=== PATIENT | male | born 1955 | race Caucasian/White ===

== ENCOUNTER 2017-01-15 06:03 | Inpatient (IN) | payer BC ==
[2017-01-11 17:14] VITALS: Ht 177.8 cm; Wt 106.5 kg
[2017-01-15] VITALS (18 sets, daily range): BP systolic 90–153; BP diastolic 50–77; PULSE 61–96; RESP 13–19
[~2017-01-15] VITALS: Ht 177.8 cm; Wt 106.5 kg
[2017-01-15] MEDS ORDERED: MELA1TAB25 PO (06:11)
[2017-01-15] MEDS ORDERED: SIMV40TA7 PO (06:11)
[2017-01-15] MEDS ORDERED: HYDR-902 PO (06:11)
[2017-01-15] MEDS ORDERED: LISI-313 PO (06:11)
[2017-01-15] MEDS ORDERED: ASPI81TA3 PO (06:11)
[2017-01-15] MEDS ORDERED: CELE200C PO (06:11)
[2017-01-15] MEDS ORDERED: ZOLP10TA PO (06:11)
[2017-01-15] MEDS ORDERED: METOPROLOL PO (06:11)
[2017-01-15] MEDS ORDERED: RANI150T5 PO (06:11)
[2017-01-15] MEDS ORDERED: CALCIUM CARBONATE PO (06:11)
[2017-01-15] MEDS ORDERED: ZOLP5TAB PO (06:11)
[2017-01-15] MEDS ORDERED: VIT D3 PO (06:11)
[2017-01-15] MEDS ORDERED: SURGIFOAM POWDER 1 GM KIT ONE (06:39)
[2017-01-15] MEDS ORDERED: CA CHLORIDE 10% 10 ML SYRINGE ONE (06:40)
[2017-01-15] MEDS ORDERED: THROMBIN 5000 UNIT VIAL ONE (06:40)
[2017-01-15] MEDS ORDERED: BUPIVACAINE 0.25%/EPI (SDV) 30 ML INJ ONE (06:41)
[2017-01-15] MEDS ORDERED: POLYMYXIN/BACITRACIN 1L IRRIG ONE (06:45)
[2017-01-15] MEDS ORDERED: NA BICARBONATE 8.4% 50 ML SYG ONE (07:00)
[2017-01-15] MEDS: D5W-0.45 NACL + KCL 20 MEQ 1,000 ML IV SCH ×2 (07:04→17:38)
[2017-01-15] MEDS ORDERED: MIDAZOLAM 1 MG/ML 2 ML INJ ONE (07:09)
[2017-01-15] MEDS ORDERED: CEFAZOLIN 1 GM INJ ONE (07:12)
[2017-01-15] MEDS ORDERED: HEPARIN 1000 UNITS/ML 10 ML INJ ONE (07:15)
[2017-01-15] MEDS ORDERED: ONDANSETRON 4 MG INJ IV PRN ×2 (07:30→09:00)
[2017-01-15] MEDS: CEFAZOLIN 1 GM/50 ML (PMX) 50 ML IVPB SCH ×3 (07:30→23:43)
[2017-01-15] MEDS ORDERED: DIPHENHYDRAMINE 25 MG CAP PO PRN (07:30)
[2017-01-15] MEDS ORDERED: BISACODYL 10 MG SUPP PR PRN (07:30)
[2017-01-15] MEDS ORDERED: NALOXONE (0.4 MG/ML) INJ IV PRN (07:30)
[2017-01-15] MEDS ORDERED: ACETAMINOPHEN 325 MG TAB PO PRN (07:30)
[2017-01-15] MEDS ORDERED: HYDROmorphONE 1 MG/ML SYG IV PRN (07:30)
[2017-01-15] MEDS ORDERED: AL HYDROX/MG HYDROX/SIMETH 30 ML CUP PO PRN (07:30)
[2017-01-15] MEDS ORDERED: DIPHENHYDRAMINE 50 MG INJ IV PRN ×2 (07:30→09:00)
--- NOTE | 2017-01-15 07:37 | HPN ---
Date/Time of Note Date/Time of Note DATE: 01/15/17 TIME: 07:36 Interval H&P Admission Note Pt. seen H&P reviewed: No system changes THOMAS LOPEZ PA-C January 15, 2017 07:37
[2017-01-15] MEDS ORDERED: BUPIVACAINE 0.25%/EPI (SDV) 30 ML INJ INJ ONE (07:46)
[2017-01-15] MEDS ORDERED: THROMBIN 5000 UNIT VIAL TOP ONE ×2 (07:46→08:42)
--- NOTE | 2017-01-15 08:18 | RADRPT ---
PROCEDURE: XR Lumbar Spine. CLINICAL INDICATION: L3-L5 DECOMPRESSION RM 4 O.R. TECHNIQUE: A single lateral view of the lumbar spine was obtained. obtained. COMPARISON: No prior studies are available for comparison. FINDINGS: There is normal osseous mineralization. There is normal alignment. No acute fracture. No subluxation of vertebral bodies. There is degenerative disk disease with vacuum disk phenomenon at L3-4 and L4-5. Posterior localizer pins are noted at L3-4 and L5-S1. IMPRESSION: Posterior localizer pins at L3-4 and L4-5. RPTAT: EE Physician Erica Date Time Electronically viewed and signed by Physician Erica on 01/15/2017 08:17 RA/
--- NOTE | 2017-01-15 08:19 | RADRPT ---
PROCEDURE: XR Lumbar Spine. CLINICAL INDICATION: L3-L5 DECOMPRESSION RM 4 O.R. TECHNIQUE: A single lateral view of the lumbar spine was obtained. COMPARISON: No prior studies are available for comparison. FINDINGS: There is normal osseous mineralization. There is normal alignment. No acute fracture. No subluxation of vertebral bodies. There is degenerative disk disease with vacuum disk phenomenon and L3-4 and L4-5. A posterior localizing pain is noted at L4-5. Post surgical material is noted within the subcutaneous soft tissues posterior to L3-4 and L4-5. IMPRESSION: Postprocedural changes within the subcutaneous soft tissues posterior to L3-4 and L4-5. RPTAT: EE Physician Erica Date Time Electronically viewed and signed by Physician Erica on 01/15/2017 08:19 /
[2017-01-15] MEDS ORDERED: HYDROmorphONE (0.2 MG/ML) 10ML SYG IV PRN ×2 (09:00)
[2017-01-15] MEDS ORDERED: LABETALOL HCL 20MG INJ IV PRN (09:00)
[2017-01-15] MEDS ORDERED: hydrALAzine 20 MG INJ IV PRN (09:00)
[2017-01-15] MEDS: DOCUSATE SODIUM 100 MG CAP PO SCH ×2 (09:00→20:23)
[2017-01-15] MEDS ORDERED: FENTAnyl 50 MCG/ML VIAL IV PRN (09:00)
[2017-01-15] MEDS ORDERED: MEPERIDINE 25 MG INJ IV PRN (09:00)
[2017-01-15] MEDS ORDERED: BUPIVACAINE 0.25% (MPF) 30 ML INJ ONE (09:41)
[2017-01-15] MEDS ORDERED: FENTAnyl 50 MCG/ML VIAL ONE (09:42)
[2017-01-15] MEDS ORDERED: hydrALAzine 20 MG INJ ONE (09:51)
[2017-01-15] MEDS ORDERED: PROPOFOL 20 ML ONE (10:20)
[2017-01-15] MEDS ORDERED: LIDOCAINE 2% (SDV) 5 ML INJ ONE (10:20)
[2017-01-15] MEDS ORDERED: NEOSTIGMINE 3 MG/3 ML SYRINGE ONE (10:21)
[2017-01-15] MEDS ORDERED: ROCURONIUM 50 MG INJ ONE (10:21)
[2017-01-15] MEDS ORDERED: ONDANSETRON 4 MG INJ ONE (10:21)
[2017-01-15] MEDS ORDERED: GLYCOPYRROLATE 1 MG INJ ONE (10:21)
--- NOTE | 2017-01-15 10:47 | OPR ---
DATE OF OPERATION: 01/15/2017 PREOPERATIVE DIAGNOSES: 1. L3-L4, L4-L5 stenosis with radiculopathy. 2. Central disk extrusion at L3-4. POSTOPERATIVE DIAGNOSES: 1. L3-L4, L4-L5 stenosis with radiculopathy. 2. Central disk extrusion at L3-4. PROCEDURE: 1. Central decompressive laminectomy at L3-L4 and L4-L5 with decompression of L3, L4, L5 nerve root s for stenosis. 2. L3-4 microdiskectomy to further alleviate stenosis. 3. Lateral localizing film x2. 4. Intraoperative neuromonitoring (2.5 hours). 5. Use of a intraoperative microscope. 6. Epidural injection via catheter. PRIMARY SURGEON: Osorio Pinto MD CARDIAC CATHETERIZATION TECHNICIAN: Jennifer Neville PA-C NEED FOR SUPERVISOR PHOTOENGRAVING: During this spinal surgical procedure, my sociology research assistant was used to retrac t and protect the spinal nerves and dural sac. My sociology research assistant also employed the suction catheters to evacuate blood from the surgical field to improve visualization of the neural structures. The sandoval tant was medically necessary to facilitate the completion of the surgery in a safe and expeditious [place]. State of [place] regulations, as well as hospital bylaws, preclude the use of non-license d health care personnel, such as operating room technicians, to perform these functions. FINDINGS: Intraoperative neuromonitoring signals at start of the case revealed right L4 and bilater al L5 nerve signals down 40%. The patient had stenosis at L3-L4 and L4-L5. In addition, had a larg e extruded fragment at L3-4. ESTIMATED BLOOD LOSS: 300 mL with 150 mL returned back to the patient via Cell Saver. DRAINS: One. SPECIMENS: 1. L3-4 spinous process. 2. L3-4 disk. COMPLICATIONS OF PROCEDURES: None. ANESTHESIOLOGIST: Calderon Llanes MD TYPE OF ANESTHESIA: General. INDICATIONS FOR PROCEDURE: This is a 61-year-old gentleman with lumbosacral radiculopathy in the se tting of stenosis. In addition, he had a disk extrusion adding to the stenosis. He failed nonopera tive measures, therefore, I recommended proceeding with the above-mentioned surgery. Preoperatively , we discussed the risks, benefits, and alternatives. He understood and wished to proceed. DESCRIPTION OF PROCEDURE IN DETAIL: The patient was identified in the preoperative holding area, gi max Ancef antibiotic, taken to the operating room, where he was placed under general anesthesia by Archana Llanes. Neuromonitoring leads were placed, sequential compressive devices were applied. Wellington c atheter was introduced. Neuromonitoring was utilized during was utilized during the procedure for 2 .5 hours to include SSEP, MEP, and EMG. This was performed by [employer]. Start time was 7:4 5 a.m., closure time was 10:15 a.m. The patient was placed in the operative table in prone position over a Jose Daniel frame. All bony promi nences were well padded. The back was then prepped and draped in usual sterile fashion. Spinal nee dles were placed lateral localizing films obtained to confirm the correct levels. Once this was con firmed, I injected the skin, subcutaneous tissue, and paraspinal musculature with 0.25% Marcaine and epinephrine. Incision was then made over the L3-L4 and L4-L5 level. Incision was taken down to do rsal fascia, which was incised with Bovie cautery. I then subperiosteally dissected the L3 and L4 l zan bilaterally. Kerrison was placed under what was felt to be the L4 lamina and repeat lateral f ilms obtained to confirm the correct levels. Once this was confirmed, microscope was brought in and a central decompressive laminectomy was performed at the L4 and L4-5 levels. I decompressed the la teral recess and decompressed the L3, L4 and L5 nerve roots. This decompression was done in order t o alleviate the stenosis. I turned my attention to the right L3-4 level. I had my sociology research assistant retract the neural elements media lly and identified extruded fragment. I made an incision just through the posterior longitudinal li gament and removed the extruded fragment. This fragment was causing more stenosis and was done in o rder to further alleviate the stenosis. This added approximately 40 minutes to the standard decompr ession for stenosis. I then entered the disk space through the tear in the annulus and removed free fragments. Once this was done, all nerve signals returned to normal. Wound was irrigated. Hemost asis was achieved with bipolar cautery and Surgifoam. Wound was irrigated again. Bone wax was plac ed on the bony edges. Epidural catheter was passed through which I injected 100 mcg of fentanyl wit h 2 mL of Marcaine 0.25% preservative-free, and the catheter was pulled. Anesthesiologist karen manuelito pheral blood, which was spun using the AcesoBee device. I took the platelet-poor plasma and mixed t his with thrombin and injected this over the dura for hemostatic purposes. The retractors were removed and I closed deep fascia with #1 StrataFix suture after placing a subfas cial drain. I then closed subcutaneous tissue with 2-0 Vicryl stitch. A 4-0 Monocryl closure was t hen performed. Dermabond and sterile dressings were then applied. The patient was then awakened fr om anesthesia and taken to recovery room in stable condition. Lap, sponge, and instrument counts we re correct x2. There were no apparent complications during the procedure. The patient will be admi tted to the orthopedic kwon for routine postoperative care to include pain control, neurovascular ch ecks, antibiotics, and physical therapy. Dictated By: OSORIO JOHNSON/JOSEFINA Conf#: [id number] DID#: [id number]
[2017-01-15] MEDS: HYDROmorphONE 0.2 MG/ML PCA IV SCH ×2 (10:57→18:29)
--- NOTE | 2017-01-15 13:49 | CONS ---
Date/Time of Note Date/Time of Note DATE: 01/15/17 TIME: 13:38 Assessment/Plan Assessment/Plan Problems: (1) Status post lumbar laminectomy Status: Acute Comment: Immediately postop. He is actually already standing with physical therapy. Continue with appropriate postoperative care with careful observation and intervention. At this moment no postoperative complications (2) Status post lumbar microdiscectomy Status: Acute Comment: As above. Continue careful physical therapy. (3) S/P AVR (aortic valve replacement) Status: Chronic Comment: This was performed in 2011 when he successfully stable with a bioprosthetic valve (4) Hepatitis C antibody positive in blood Status: Chronic Comment: We will treat him with blood blood and body fluid precautions. (5) GERD (gastroesophageal reflux disease) Status: Chronic Comment: Continue with twice daily H2 receptor blockers and calcium tablets Qualifiers: Qualified Code: K21.9 - Gastroesophageal reflux disease, esophagitis presence not specified (6) Barretts esophagus Status: Chronic Comment: Noted. Continue as above Qualifiers: Qualified Code: K22.70 - Dueñas's esophagus without dysplasia (7) Hyperlipidemia Status: Chronic Comment: Noted continue on statin therapy although adjusted for the hospital's formulary Qualifiers: Qualified Code: E78.00 - Pure hypercholesterolemia (8) Hypertension, essential Status: Chronic Comment: Continue on medications orders written (9) Lumbar spinal stenosis Status: Chronic Comment: Postop and hopefully will have a outstanding outcome Consultation Date/Type/Reason Admit Date/Time January 15, 2017 at 06:03 Date of Consultation: January 15, 2017 Type of Consultation: Internal medicine Reason for Consultation Hypertension hyperlipidemia metabolic syndrome status post aortic valve replacement Referring Provider: ANTHONY PINTO MD Hx of Present Illness [facility] emergency department 61-year-old male admitted electively by Dr. Pinto for lumbar spinal stenosis with lumbar disc disease. He is immediately postoperative. He has had a low central lumbar L3 decompression with microdiscectomy as above and below. He reports no complaints. Please see the review of systems Constitutional: no complaints (No fevers chills or sweats) Eyes: no complaints ENT: no complaints Respiratory: no complaints Cardiovascular: no complaints Gastrointestinal: no complaints (Some burping postoperatively) Genitourinary: no complaints Musculoskeletal: back pain Neurologic: no complaints Endocrine: no complaints Psychological: nl mood/affect, no complaints Past Medical History 1) insulin resistance syndrome 2) obesity 3) essential hypertension 4) hyperlipidemia 5) history of bicuspid aortic valve status post aortic valve replacement 6) history of hepatitis C antibody positivity 7) colonic polyposis 8 ) gastroesophageal reflux disease 9) Dueñas's esophagus 10) osteoarthritis 11) disorders of initiating and maintaining sleep Past Surgical History 1) status post Candy fundoplication July 2014 2) status post bovine aortic valve replacement 2011 Family History Significant Family History: heart disease, diabetes Social History Alcohol Use: other (2 units of alcohol daily) Smoking Status: Never smoker Drug Use: none Exam/Review of Systems Vital Signs Vitals Vital Signs Date Time Temp Pulse Resp B/P Pulse Ox O2 Delivery O2 Flow Rate FiO2 01/15/17 12:05 98.1 75 18 103/54 01/15/17 11:14 96 01/15/17 11:00 Room Air Exam Constitutional: alert, oriented Head: atraumatic, normocephalic Neck: non-tender, supple Respiratory: clear to auscultation, normal air movement Cardiovascular: nl pulses, regular rate and rhythm Gastrointestinal: nl liver, spleen, non-tender, soft Musculoskeletal: nl extremities to inspection, nl gait and stance Extremities: normal pulses Neurological: SWITCHMAN SUPERVISOR II-XII intact, nl mental status, nl speech, nl strength Skin: nl turgor, rash or lesions Medications Medications Current Medications Potassium Chloride/Dextrose/ Sod Cl (D5-1/2ns + KCl 20 Meq) 1,000 ml @ 100 mls/ hr Q10H IV ; Start 01/15/17 at 07:04 Acetaminophen/ Hydrocodone Bitart ([place] (10/325)) 1 tab Q4H PRN PO PAIN LEVEL 1-5; Start 01/15/17 at 07:30 Acetaminophen/ Hydrocodone Bitart ([place] (10/325)) 2 tab Q4H PRN PO PAIN LEVEL 6-10; Start 01/15/17 at 07:30 Hydromorphone HCl 0.2 mg 0.2 mg Q1H PRN IV BREAKTHROUGH PAIN; Start 01/15/17 at 07:30 Cefazolin Sodium (Ancef 1 Gm/50 ml (Pmx)) 50 ml @ 100 mls/hr Q8H IVPB ; Start 01/15/17 at 07:30; Stop 01/15/17 at 23:59 Ondansetron HCl (Zofran Inj) 4 mg Q6H PRN IV NAUSEA AND/OR VOMITING; Start at 07:30 Bisacodyl (Dulcolax Supp) 10 mg DAILY PRN [place] CONSTIPATION; Start 01/15/17 at 07 :30 Docusate Sodium (Colace) 100 mg BID PO ; Start 01/15/17 at 09:00 Pantoprazole (Protonix Iv) 40 mg DAILY@06 IV ; Start 01/16/17 at 06:00 Al Hydrox/Mg Hydrox/Simethicone (Mag-Al Plus) 15 ml Q6H PRN PO CONSTIPATION/ DYSPEPSIA; Start 01/15/17 at 07:30 Acetaminophen (Tylenol Tab) 650 mg Q4H PRN PO GARCIA OR TEMP GREATER THAN 101.3F; Start 01/15/17 at 07:30 Cyclobenzaprine HCl (Flexeril) 10 mg TID PRN PO MUSCLE SPASMS; Start 01/15/17 at 07:30 Phenol (Cepastat Lozenge) 1 lozenge PRN PRN MT SORE THROAT; Start 01/15/17 at 07:30 Diphenhydramine HCl (Benadryl) 25 mg Q6H PRN PO ITCHING; Start 01/15/17 at 07: 30 Diphenhydramine HCl (Benadryl) 25 mg Q6H PRN IV ITCHING; Start 01/15/17 at 07: 30 Naloxone HCl (Narcan) 0.2 mg Q2M PRN IV RR 8 BREATHS/MIN OR LESS; Start at 07:30 Hydromorphone HCl (Dilaudid FABRIC INSPECTOR) FABRIC INSPECTOR to be started in PACU Q4PCA IV Last administered on 01/15/17t 10:57; Admin Dose 6 MG; Start 01/15/17 at 07:30 Miscellaneous Information 1. Hold FABRIC INSPECTOR at 1,000... FABRIC INSPECTOR IV ; Start 01/15/17 at 07: 30 VIN LECHUGA MD January 15, 2017 13:49
[2017-01-15] MEDS: THIAMINE 100 MG TAB PO SCH (14:00)
[2017-01-15] MEDS ORDERED: CALCIUM CARBONATE 500 MG CHEW TAB PO PRN (14:00)
[2017-01-15] MEDS: CEPASTAT LOZENGE MT PRN ×2 (14:17→23:43)
[2017-01-15] MEDS: FAMOTIDINE 20 MG TAB PO SCH (20:23)
[2017-01-15] MEDS: ATORVASTATIN 40 MG TAB PO SCH (20:23)
[2017-01-15] MEDS: CHOLECALCIFEROL 1,000 UNIT TAB PO SCH (20:23)
[2017-01-15] MEDS: METOPROLOL 50 MG TAB PO SCH (20:24)
[2017-01-15] MEDS: CYCLOBENZAPRINE 10 MG TAB PO PRN (23:43)
[2017-01-16] MEDS: HYDROmorphONE 0.2 MG/ML PCA IV SCH (02:54)
[2017-01-16 04:57] LABS: ADD SCAN DIFF NO
[2017-01-16 05:03] LABS: BASOPHILS % 0.2 % (0.0-2.0); EOSINOPHILS # 0.2 10^3/ul (0.0-0.5); EOSINOPHILS % 2.5 % (0.0-7.0); HEMATOCRIT 35.8 % (42.0-52.0); LYMPHOCYTES # 1.8 10^3/ul (0.8-2.9); LYMPHOCYTES % 18.6 % (15.0-51.0); MEAN CORPUSCULAR HEMOGLOBIN 30.2 pg (29.0-33.0); MEAN CORPUSCULAR HGB CONC 33.5 g/dl (32.0-37.0); MEAN CORPUSCULAR VOLUME 89.9 fl (82.0-101.0); MEAN PLATELET VOLUME 10.7 fl (7.4-10.4); MONOCYTE # 0.9 10^3/ul (0.3-0.9); MONOCYTES % 9.2 % (0.0-11.0); NEUTROPHIL # 6.7 10^3/ul (1.6-7.5); PLATELET COUNT 129 10^3/UL (140-415); RED BLOOD COUNT 3.98 10^6/ul (4.70-6.10); RED CELL DISTRIBUTION WIDTH 11.9 % (11.5-14.5); WHITE BLOOD COUNT 9.7 10^3/ul (4.8-10.8)
[2017-01-16] MEDS: D5W-0.45 NACL + KCL 20 MEQ 1,000 ML IV SCH ×3 (05:06→23:04)
[2017-01-16] MEDS: PANTOPRAZOLE 40 MG INJ IV SCH (05:06)
[2017-01-16 05:47] LABS: POTASSIUM 5.2 mmol/L (3.5-5.1)
[2017-01-16 05:49] LABS: CREATININE 1.09 mg/dl (0.61-1.24)
[2017-01-16 05:50] LABS: CALCIUM 8.8 mg/dl (8.4-10.2); MAGNESIUM 1.8 mg/dl (1.7-2.5)
[2017-01-16] MEDS ORDERED: CEFAZOLIN 1 GM/50 ML (PMX) 50 ML IVPB SCH (07:30)
[2017-01-16 08:28] VITALS: BP 128/64; RESP 18
[2017-01-16] MEDS: CHOLECALCIFEROL 1,000 UNIT TAB PO SCH ×2 (08:54→20:35)
[2017-01-16] MEDS: LISINOPRIL 5 MG TAB PO SCH (08:54)
[2017-01-16] MEDS: METOPROLOL 50 MG TAB PO SCH ×2 (08:54→20:36)
[2017-01-16] MEDS: FAMOTIDINE 20 MG TAB PO SCH ×3 (08:54→20:35)
[2017-01-16] MEDS: THIAMINE 100 MG TAB PO SCH ×2 (08:54→09:00)
[2017-01-16] MEDS: DOCUSATE SODIUM 100 MG CAP PO SCH ×2 (08:54→20:35)
[2017-01-16] MEDS: HYDROCODONE/APAP (10/325) TAB PO PRN ×4 (09:34→22:09)
--- NOTE | 2017-01-16 09:44 | PN ---
Date/Time of Note Date/Time of Note DATE: 01/16/17 TIME: 09:42 Assessment/Plan Lines/Catheters IV Catheter Type (from Nrsg): Peripheral IV Wellington in Place (from Nrsg): Yes Assessment/Plan Assessment/Plan s/p lumbar decompression - doing well continue PT, ambulate pain control anticipate D/C tomorrow if drain output decreases and if cleared by PT Subjective 24 Hr Interval Summary pt c/o LBP, notes improvement in leg sx Exam/Review of Systems Vital Signs Vitals Vital Signs Date Time Temp Pulse Resp B/P Pulse Ox O2 Delivery O2 Flow Rate FiO2 01/16/17 08:28 98.7 81 18 128/64 94 01/15/17 11:00 Room Air Intake and Output 01/15/17 01/15/17 01/16/17 15:00 23:00 07:00 Intake Total 1200 ml 650 ml 1480 ml Output Total 505 ml 630 ml 1095 ml Balance 695 ml 20 ml 385 ml Exam Free Text/Dictation NVID AOx3 incision C/D/I drain output 95cc/last shift, 135cc last night Results Result Diagram: 01/16/17 0432 01/16/17 0435 THOMAS LOPEZ PA-C January 16, 2017 09:43
[2017-01-16] MEDS ORDERED: NA PHOSPHATE/BIPHOS 133 ML ENEMA PR ONE (16:00)
--- NOTE | 2017-01-16 19:45 | CONS ---
Date/Time of Note Date/Time of Note DATE: 01/16/17 TIME: 19:43 Assessment/Plan Assessment/Plan Chief Complaint/Hosp Course Luis 61-year-old male admitted electively by Dr. Pinto for lumbar spinal stenosis with lumbar disc disease. He is immediately postoperative. He has had a low central lumbar L3 decompression with microdiscectomy as above and below. He reports no complaints. Please see the review of systems Problems: (1) Status post lumbar laminectomy Status: Acute Comment: Progressing postoperatively. The only major issue is his constipation which I will address. If everything goes well he should be able to be discharged tomorrow (2) GERD (gastroesophageal reflux disease) Status: Chronic Comment: Stable and controlled Qualifiers: Esophagitis presence: esophagitis presence not specified Qualified Code: K21.9 - Gastroesophageal reflux disease, esophagitis presence not specified (3) Hypertension, essential Status: Chronic Comment: Control (4) Barretts esophagus Status: Chronic Comment: Stable and conpensated Qualifiers: Dueñas's esophagus type: without dysplasia Qualified Code: K22.70 - Dueñas's esophagus without dysplasia Consultation Date/Type/Reason Admit Date/Time January 15, 2017 at 06:03 Initial Consult Date 01/15/17 Type of Consultation: Internal medicine Reason for Consultation Multiple medical problems Referring Provider: ANTHONY PINTO MD 24 HR Interval Summary Constitutional: no complaints (Denies fevers chills or sweats) Detailed Summary Respiratory: no complaints Cardiovascular: no complaints Gastrointestinal: constipation Genitourinary: no complaints (Some distention requests laxative) Exam/Review of Systems Vital Signs Vitals Vital Signs Date Time Temp Pulse Resp B/P Pulse Ox O2 Delivery O2 Flow Rate FiO2 01/16/17 10:30 18 01/16/17 08:28 98.7 81 128/64 94 01/15/17 11:00 Room Air Intake and Output 01/15/17 01/15/17 01/16/17 15:00 23:00 07:00 Intake Total 1200 ml 650 ml 1480 ml Output Total 505 ml 630 ml 1095 ml Balance 695 ml 20 ml 385 ml Exam Constitutional: alert, oriented Neck: non-tender, supple Respiratory: clear to auscultation, normal air movement Cardiovascular: nl pulses, regular rate and rhythm Gastrointestinal: bowel sounds (Present), distended Results Result Diagram: 01/16/17 0432 01/16/17 0435 Results 24 hrs Laboratory Tests Test 01/16/17 04:32 01/16/17 04:35 White Blood Count 9.7 Red Blood Count 3.98 L Hemoglobin 12.0 L Hematocrit 35.8 L Mean Corpuscular Volume 89.9 Mean Corpuscular Hemoglobin 30.2 Mean Corpuscular Hemoglobin Concent 33.5 Red Cell Distribution Width 11.9 Platelet Count 129 L Mean Platelet Volume 10.7 H Neutrophils % 69.0 Lymphocytes % 18.6 Monocytes % 9.2 Eosinophils % 2.5 Basophils % 0.2 Nucleated Red Blood Cells % 0.0 Neutrophils # 6.7 Lymphocytes # 1.8 Monocytes # 0.9 Eosinophils # 0.2 Basophils # 0.0 Nucleated Red Blood Cells # 0.0 Sodium Level 134 L Potassium Level 5.2 H Chloride Level 104 Carbon Dioxide Level 29 Anion Gap 6 L Blood Urea Nitrogen 15 Creatinine 1.09 Glucose Level 114 Calcium Level 8.8 Magnesium Level 1.8 Medications Medications Current Medications Potassium Chloride/Dextrose/ Sod Cl (D5-1/2ns + KCl 20 Meq) 1,000 ml @ 100 mls/ hr Q10H IV Last administered on 01/16/17 05:06; Admin Dose 100 MLS/HR; Start 01/15/17 at 07:04 Acetaminophen/ Hydrocodone Bitart ([place] (10/325)) 1 tab Q4H PRN PO PAIN LEVEL 1-5 Last administered on 01/16/17 17:53; Admin Dose 1 TAB; Start 01/15/17 at 07 :30 Acetaminophen/ Hydrocodone Bitart ([place] (10/325)) 2 tab Q4H PRN PO PAIN LEVEL 6-10 Last administered on 01/16/17 09:34; Admin Dose 2 TAB; Start 01/15/17 at 07:30 Hydromorphone HCl (Dilaudid) 0.2 mg Q1H PRN IV BREAKTHROUGH PAIN; Start at 07:30 Ondansetron HCl (Zofran Inj) 4 mg Q6H PRN IV NAUSEA AND/OR VOMITING; Start at 07:30 Bisacodyl (Dulcolax Supp) 10 mg DAILY PRN [place] CONSTIPATION Last administered on 01/16/17 12:11; Admin Dose 10 MG; Start 01/15/17 at 07:30 Docusate Sodium (Colace) 100 mg BID PO Last administered on 01/16/17 08:54; Admin Dose 100 MG; Start 01/15/17 at 09:00 Pantoprazole (Protonix Iv) 40 mg DAILY@06 IV Last administered on 01/16/17 05: 06; Admin Dose 40 MG; Start 01/16/17 at 06:00 Al Hydrox/Mg Hydrox/Simethicone (Mag-Al Plus) 15 ml Q6H PRN PO CONSTIPATION/ DYSPEPSIA; Start 01/15/17 at 07:30 Acetaminophen (Tylenol Tab) 650 mg Q4H PRN PO GARCIA OR TEMP GREATER THAN 101.3F; Start 01/15/17 at 07:30 Cyclobenzaprine HCl (Flexeril) 10 mg TID PRN PO MUSCLE SPASMS Last administered on 01/15/17 23:43; Admin Dose 10 MG; Start 01/15/17 at 07:30 Phenol (Cepastat Lozenge) 1 lozenge PRN PRN MT SORE THROAT Last administered on 01/15/17 23:43; Admin Dose 1 LOZENGE; Start 01/15/17 at 07:30 Diphenhydramine HCl (Benadryl) 25 mg Q6H PRN PO ITCHING; Start 01/15/17 at 07: 30 Diphenhydramine HCl (Benadryl) 25 mg Q6H PRN IV ITCHING; Start 01/15/17 at 07: 30 Naloxone HCl (Narcan) 0.2 mg Q2M PRN IV RR 8 BREATHS/MIN OR LESS; Start at 07:30 Hydromorphone HCl (Dilaudid SYSTEMS SOFTWARE DEVELOPER) SYSTEMS SOFTWARE DEVELOPER to be started in PACU Q4PCA IV Last administered on 01/16/17 02:54; Admin Dose 6 MG; Start 01/15/17 at 07:30 Miscellaneous Information 1. Hold SYSTEMS SOFTWARE DEVELOPER at 1,000... SYSTEMS SOFTWARE DEVELOPER IV ; Start 01/15/17 at 07: 30 Thiamine HCl (Vitamin B1) 100 mg DAILY PO ; Start 01/15/17 at 14:00 Lisinopril (Zestril) 5 mg DAILY PO Last administered on 01/16/17 08:54; Admin Dose 5 MG; Start 5/31/17 at 09:00 Calcium Carbonate (Tums) 1,000 mg Q8H PRN PO HEARTBURN Last administered on 21:36; Admin Dose 1,000 MG; Start 01/15/17 at 14:00 Cholecalciferol (Vitamin D) 2,000 unit BID PO Last administered on 01/16/17 08 :54; Admin Dose 2,000 UNIT; Start 01/15/17 at 21:00 Famotidine (Pepcid) 20 mg BID PO Last administered on 01/15/17 20:23; Admin Dose 20 MG; Start 01/15/17 at 21:00 Atorvastatin Calcium (Lipitor) 40 mg HS PO Last administered on 01/15/17 20:23 ; Admin Dose 40 MG; Start 01/15/17 at 21:00 Metoprolol Tartrate (Lopressor) 50 mg BID PO Last administered on 01/16/17 08: 54; Admin Dose 50 MG; Start 01/15/17 at 21:00 VIN LECHUGA MD January 16, 2017 19:45
[2017-01-16 19:55] VITALS: BP 127/69; RESP 20
[2017-01-16] MEDS ORDERED: MAGNESIUM HYDROXIDE 30ML CUP PO ONE (20:00)
[2017-01-16] MEDS: ATORVASTATIN 40 MG TAB PO SCH (20:35)
[2017-01-16] MEDS: CYCLOBENZAPRINE 10 MG TAB PO PRN (23:53)
[2017-01-17] MEDS: HYDROCODONE/APAP (10/325) TAB PO PRN ×3 (02:30→12:09)
[2017-01-17 05:10] LABS: ADD SCAN DIFF NO
[2017-01-17 05:17] LABS: BASOPHILS % 0.2 % (0.0-2.0); EOSINOPHILS # 0.1 10^3/ul (0.0-0.5); EOSINOPHILS % 0.8 % (0.0-7.0); HEMATOCRIT 37.9 % (42.0-52.0); LYMPHOCYTES # 1.8 10^3/ul (0.8-2.9); LYMPHOCYTES % 14.3 % (15.0-51.0); MEAN CORPUSCULAR HEMOGLOBIN 30.2 pg (29.0-33.0); MEAN CORPUSCULAR HGB CONC 34.3 g/dl (32.0-37.0); MEAN CORPUSCULAR VOLUME 88.1 fl (82.0-101.0); MEAN PLATELET VOLUME 10.8 fl (7.4-10.4); MONOCYTES % 7.9 % (0.0-11.0); NEUTROPHIL # 9.3 10^3/ul (1.6-7.5); PLATELET COUNT 173 10^3/UL (140-415); RED CELL DISTRIBUTION WIDTH 11.8 % (11.5-14.5); WHITE BLOOD COUNT 12.3 10^3/ul (4.8-10.8)
[2017-01-17 05:45] LABS: CALCIUM 9.1 mg/dl (8.4-10.2); CREATININE 0.92 mg/dl (0.61-1.24); MAGNESIUM 2.1 mg/dl (1.7-2.5); POTASSIUM 4.2 mmol/L (3.5-5.1)
[2017-01-17] MEDS: PANTOPRAZOLE 40 MG INJ IV SCH (06:05)
[2017-01-17] MEDS: THIAMINE 100 MG TAB PO SCH (08:12)
[2017-01-17] MEDS: CHOLECALCIFEROL 1,000 UNIT TAB PO SCH (08:12)
[2017-01-17] MEDS: LISINOPRIL 5 MG TAB PO SCH (08:12)
[2017-01-17] MEDS: FAMOTIDINE 20 MG TAB PO SCH (08:12)
[2017-01-17] MEDS: METOPROLOL 50 MG TAB PO SCH (08:12)
[2017-01-17] MEDS: DOCUSATE SODIUM 100 MG CAP PO SCH (08:12)
[2017-01-17 08:37] VITALS: BP 131/71; RESP 20
[2017-01-17] MEDS: D5W-0.45 NACL + KCL 20 MEQ 1,000 ML IV SCH (09:04)
--- NOTE | 2017-01-17 11:14 | DS ---
DATE OF ADMISSION: 01/15/2017 DATE OF DISCHARGE: 01/17/2017 ADMITTING DIAGNOSIS: Spinal stenosis. DISCHARGE DIAGNOSIS: Spinal stenosis. PROCEDURE: Patient taken to the operating room on 01/15/2017 and underwent lumbar decompression. HOSPITAL COURSE: The patient was admitted to the orthopedic kwon after undergoing the above proce dure. His postop course was uncomplicated. By postoperative day 2, he was deemed stable for discha rge with followup arranged with the undersigned after removal of his drain. Dictated By: ANTHONY JOHNSON/JOSEFINA Conf#: [id number] DID#: [id number]
== END 2017-01-17 15:40 | disposition home or self-care (01) | DRG 520 ==
LOC: REC 06:03 → MS1 12:02
PROVIDERS: ADMIT Specialist; ATTEND Specialist
PROC: 0ST20ZZ Resection of Lumbar Vertebral Disc, Open Approach (ICD-10-PCS; 2017-01-15)
PROC: 01NB0ZZ Release Lumbar Nerve, Open Approach (ICD-10-PCS; principal; 2017-01-15 07:00)
DX: M48.06 Spinal stenosis, lumbar region (principal); E66.01 Morbid (severe) obesity due to excess calories; I10 Essential (primary) hypertension; M54.16 Radiculopathy, lumbar region; K21.9 Gastro-esophageal reflux disease without esophagitis; E78.5 Hyperlipidemia, unspecified; Z68.33 Body mass index [BMI] 33.0-33.9, adult
CPT/HCPCS: 72020; 80048; 83735; 85025; 87086; 88304; 88311; 97116; 97162; 97530; C9113; J0360; J0690; J1170; J1644; J2175; J2250; J2405; J2710; J3010; J3480